=== PATIENT | male | born 1975 | race Caucasian/White ===

== ENCOUNTER 2016-03-30 21:06 | Inpatient (IN) | payer MEDICAID, OTHER ==
[~2016-03-30] VITALS: Ht 185.4 cm; Wt 105.0 kg
[~2016-03-30 21:06] MED LIST: BENZ2TAB7; BUSP15TA3; DIAZ5TAB3; DILT180C83; EPIN0.3P17; GABA-502; HYDR25TA4; KLO2T; OXYC-466; PRAZ5CAP3; RISP2TAB3
[2016-03-31] MEDS ORDERED: Magnesium Hydroxide 10 mL Oral Concentration PO PRN (00:55)
[2016-03-31] MEDS ORDERED: Benzocaine-Menthol Lozenge 2/Pkg PO PRN (00:55)
[2016-03-31] MEDS: risperiDONE 2 mg Tablet PO SCH ×2 (00:55→20:17)
[2016-03-31] MEDS: BusPIRone 15 mg Dividose Tablet PO SCH ×3 (00:55→20:15)
--- NOTE | 2016-03-31 04:09 | NUR ---
admit note nursing 11-7 this is a 41 year old male who presented and was medically cleared, evaluated and accepted as a voluntary patient from [facility]. he has been certified for 5 days by eliud izaguirre. has a hx of multiple hospitalizations, the last being here 08/20/2015 and is currently enrolled in [facility] and taking prescribed medication. he complains of increasing voices to hang himself related to conflict between his parents with whom he lives. this has been getting increasingly worse and led him to call 911 seeking hospitalization for safety. he arrived at 0010 by ambulance. presented as cooperative and seeking help. physical assessment- denies any acute medical/physical injury/need and none is apparent. is a/o x3, vs- wnl, has medication allergies, ht- 73", wt- 230 lbs. hx of head injury, crush injury, bilateral knee surgery, hypertension, kidney stones, chronic pain. recent poor eating, sleeping, hygiene. increased anxiety, panic attacks, derogatory voices. received 1 mg of ativan x3 and 5 mg of valium at [facility] prior to transport. completed the admission process, searched, agrees to no self harm, briefly oriented to the unit/program, given bed 226 and has appeared to sleep after 0145. assessed q 15 minutes. juan
--- NOTE | 2016-03-31 05:54 | NUR ---
Pt arrived to unit at 0010. Signed all paperwork. Pleasant and somewhat anxious. Asleep at 145. Pt observed every 15 minutes as ordered.
[2016-03-31] MEDS: Diltiazem CD 180 mg ER24 Capsule PO SCH (08:10)
[2016-03-31 09:00] VITALS: BP 143/94; PULSE 77; RESP 16
[2016-03-31] MEDS: oxyCODONE-Acetamin 10-325 mg Tablet PO PRN ×3 (09:38→20:18)
--- NOTE | 2016-03-31 11:50 | PCM.HPPSYC ---
Mental Health [facility] Date of Service Mar 31, 2016 Admission Date/Time Mar 31, 2016 at 00:09 Admission Status: Voluntary Source of Information: Patient Interview, Chart Review, Clinical Materials Accompanying, Observation Chief Complaint Suicidal ideation and command auditory hallucinations History of Present Illness Quintin is a 40-year-old, white male, known to the [facility] with a past admission in 2016 for similar complaints, Command auditory hallucinations of a derogatory nature leading to multiple symptoms of depression (poor sleep interest and appetite concentration and now suicidal ideation with a plan to hang himself. Since leaving the mental health unit in August 2015 he has remained on his current medications. He reports being medication compliant. Complaining of high degree of stress that seems to be a result of from his view of his parents fighting. This is causing him to be highly agitated and is not able to calm down despite being on BuSpar Klonopin gabapentin Valium Percocet and Risperdal. He is followed by [facility] and carries a diagnosis of schizoaffectivedisorder. He has a long history of responding to internal voices. They tend to be derogatory in nature and tell him he is "worthless." He had been doing well for months until a recent gradual deterioration in his mood. The only factor I could identify for the increased symptoms his complaints of interpersonal relationship conflicts within the house between his mother and stepfather. He was admitted here on avoluntary basis from [facility] after having increasing suicidal ideation and increasing auditory hallucinations. He stated that depression had been slowly increasing for the past several months, and it got to the point where he was afraid he could not contain self-harm impulses. He started to have thoughts about either hanging himself and sought help. Presenting Symptoms: Mood (Months), Depression (Months), with Psychotic Features (Weeks), Psychosis (Weeks), Anxiety (Months), Panic (Months) Vegetative Functioning: Sleep (Decreased), Appetite (Decreased), Energy ( Decreased), Libido (Decreased) Allergies Coded Allergies: Honey Bee (Verified Allergy, Severe, Anaphylaxis, 10/24/07) Wasp (Verified Allergy, Severe, Anaphylaxis, 10/24/07) ketorolac (Verified Allergy, Severe, 07/05/11) hydromorphone (Verified Allergy, Unknown, 08/21/15) Penicillins (Verified Adverse Reaction, Severe, 07/05/11) morphine (Verified Adverse Reaction, Severe, 07/05/11) Home Medications Home Medications Benztropine Mesylate (Benztropine Mesylate) 2 Mg Tablet DAILY Buspirone (Buspirone) 15 Mg Tablet QID Clonazepam (Clonazepam) 2 Mg Tablet DAILY Diazepam (Diazepam) 5 Mg Tablet QID Diltiazem ER (Diltiazem ER) 180 Mg Cap.er.24h DAILY Gabapentin (Gabapentin) 300 Mg Capsule QID Hydrochlorothiazide (Hydrochlorothiazide) 25 Mg Tablet DAILY Prazosin (Prazosin) 5 Mg Capsule DAILY Risperidone (Risperidone) 2 Mg Tablet DAILY oxyCODONE-Acetaminophen 10-325 mg (oxyCODONE-Acetaminophen 10-325 mg) 1 Each Tablet TID Scheduled PRN Epinephrine (Epinephrine) 0.3 Mg/0.3 Ml Auto.injct PRN For Anaphyllaxis Psychiatric Treatment History diagnosed with schizoaffective disorder at age 23. He has been hospitalized multiple times, and the last was 2015, and prior to that 2012 at [facility]. Past Suicide Attempts Yes Relevant History The patient does have a distant history of OD'ing on pills and slitting wrists "years and years ago." Hx non-suicidal Self-Injury Relevant History Relevant History Details: Hx Violence Towards Other No Past Medical History Past Medical/Surgical History Head Injury, HTN Current and Past Current/Past: hypertension, head injury, hx of kidney stones. Currently ?: No Hx Hospitalization: Yes Hx Surgeries: Yes (bilateral knee surgery) Hx Anesthesia Reactions: No Past Social History Family: Single Review of Systems Constitutional: No: Chills, Fever, Malaise, Other, Sweats, Weakness Eyes: Denies: Blurred Vision, Conjunctive Inflammation, Double Vision, Eyelid Inflammation, Other, Pain, Pigmentosa, Redness, Retinitis, Vision Changes Cardiovascular: Denies: Chest Pain, Edema, Lt Headedness, Orthopnea, Other, Palpitations, Paroxysmal Noc. Dyspnea Respiratory: Denies: Cough, Hemoptysis, Other, Pleuritic Chest Pain, SOB with Exertion, Shortness of Breath, Sputum, Wheezing Gastrointestinal: Denies: Abdominal Pain, Change in Appetite, Constipation, Diarrhea, Heartburn, Hematochezia, Melena, Nausea, Other, Use of Laxatives, Vomiting Genitourinary: Denies: Anuria, Change in Frequency, Dysuria, Hematuria, Incontinence, Nocturia, Other, Retention Neurological: Reports: Change in Speech, Confusion, Dizziness, Dyskinesia, Hyper Reflexia, Incoordination, Numbness, Other, Seizures, Somnolence, Tremors, Weakness Mental Status Exam Appearance: Neat/well groomed Attitude: Pleasant, Cooperative Behavior: No unusual behavior Affect: Well Modulated/Appropriate Mood: Dysthymic, Anxious Thought Process/Associations: Logical/Sequential, Goal Directed Speech Production: Normal Speech Rate: Normal Speech Articulation: Normal Thought Content: Appropriate Danger to Self/Suicidal Ideati: Active, Plan, Intent Danger to Others: None Hallucinations: Auditory (Endorses), Other (he describes command auditory hallucinations of a derogatory nature) Consciousness: Alert Orientation: Person, Place, Date, Situation Memory: Grossly Intact Estimate Intellectual Function: Average Basis for IQ estimate: Awareness current events Attention/Concentration & Cogn: Grossly Intact Insight: Limited Judgement: Good Mental Health Plan Sarita Sarita I: Schizoaffective disorder, bipolar type, by history. Sarita II: No diagnosis. Sarita III: 1. Hypertension. 2. Renal stones. 3. History of traumatic brain injury. 4. History of musculoskeletal pain. Sarita IV: Moderate. Sarita V: Functioning is 40. Medications BuSpar 30 twice a day Klonopin 2 mg at bedtime Gabapentin 300 4 times a day Valium 5 mg 4 times a day Risperdal 4 at bedtime Prazosin 5 at bedtime Percocet double strength every 4-6 hours when necessary Diltiazem 180 mg daily Treatments Patient will be provided with a high degree of safety through the structure and active adult engagement. We will focus on developing improved coping skills and identifying stressors that may have led to current episode. We will attempt to: Integrate into therapeutic groups, milieu and individual therapy. Maintain in a closely monitored and structured unit Provide low-stimulation environment Obtain collateral data to assist in treatment planning Assess degree of lability of affect and impulse control Complete safety plan Decrease frequency of relapse and need for re-hospitalization Denies thoughts of harm to self Establish a consistent sleep pattern Medication effective in stabilization of mood and/or thought process Reduce the risk of imminent harm to self by providing a safe environment Tolerates medication without side effects Patient will be on the following psychiatric medications: BuSpar 30 twice a day Klonopin 2 mg at bedtime Gabapentin 300 4 times a day Valium 5 mg 4 times a day Risperdal 4 at bedtime Prazosin 5 at bedtime Address patient's legal status Voluntary Jordan Thompson MD Mar 31, 2016 11:50
--- NOTE | 2016-03-31 13:17 | NUR ---
Nursing Dayshift: S: "These two fingers are numb and there's pain in this elbow that goes to my shoulder blades the to the middle of my back." O: Patient pointing to his left hand and elbow when describing numbness and pain. Received Percocet DS at 0938 for pain rated at an 8 with patient relating effectiveness down to a 3 which has sustained him into the early afternoon. Easily approachable and social during interaction. States he has been on Zoloft in the past for depression but had been taken off of it due to resolving of symptoms. States he will "burst out in tears occasionally" because of the current depression rated at a 7/10. Anxiety a 4/10. Denies harmful thoughts and VH. AH "softer today." Has ambulated the hughes earlier in the shift. Has been drinking fluids off of his breakfast tray. No intake off of his lunch tray "when I see the food cart a voice tells me 'don't eat, don't eat.'". Declines to eat solid food. Has been given an Ensure which he did drink though afterward c/o upset stomach from the Ensure and promptly threw it up in his bathroom. A: Pleasant on approach. Blunted affect. Appetite dysfunction. P: CPOC. Monitor mood and behavior. Encourage PO intake. Meds per orders. Addendum: 03/31/16 at 0579 by PRETTY EARLY RN Patient continues to c/o nausea and received Maalox liquid. Received another Percocet DS at 1438 with effective results per patient to a 3/10. Will continue to monitor.
[2016-03-31] MEDS: Alum-Mag Hydrox-Simeth 30 mL Suspension PO PRN ×2 (14:28→16:41)
--- NOTE | 2016-03-31 18:33 | NUR ---
Observations 9006-9200 Pt was asleep upon start of shift. He appears to be in physical pain, and also stated that he hasn't slept in days. Pt shared that he doesn't eat....sharing that he has not eaten anything for the last four days. When questioned about this, pt stated that "I hear a voice in my head saying don't eat, don't eat, don't eat..." Pt shared he doesn't have an appetite, but also doesn't want to gain weight. He also shared that he has not taken a shower in the last month, worried that he might fall in the shower and lose use of his legs, which he states have metal pins in them. Pt had a previous injury in which doctors told him he would lose use of his legs, so he fears this. Pt ate an ensure this afternoon, but threw it up, and continued to be sick throughout the day. Pt walked halls in the evening, and did not eat anything else. He was observed every 15 minutes of shift as directed.
[2016-04-01] MEDS: oxyCODONE-Acetamin 10-325 mg Tablet PO PRN ×4 (02:44→21:24)
--- NOTE | 2016-04-01 05:58 | NUR ---
Nursing Noc 7p-7a Pt spent the evening walking the hallway. He presents as depressed and flat. He did express concern that a male peer was questioning him about his pain medication making Quintin concerned that this male pt was wanting to take Quintin's pain medicine. Pt asked to receive his medication in a private location away from his peers. This request was accommodated. He c/o of pain in his neck across his shoulder blades rated 6/10. He received Percocet 1 tab po prn @ 2018 & 0244. Both times pain was rated 6/10 and eventually decreased to 3/10. He received ambien 5mg po prn for sleep @ 2018 with a repeat given @ 0244. Medication had moderate effect. Broken sleep of 6 hours.
[2016-04-01] MEDS: Diltiazem CD 180 mg ER24 Capsule PO SCH (07:24)
[2016-04-01] MEDS: BusPIRone 15 mg Dividose Tablet PO SCH ×2 (07:25→21:13)
[2016-04-01 09:00] VITALS: BP 129/91; PULSE 99; RESP 16
[2016-04-01] MEDS: Alum-Mag Hydrox-Simeth 30 mL Suspension PO PRN (11:45)
[2016-04-01] MEDS: Ondansetron 8 mg ODT Tablet PO PRN ×2 (12:41→19:03)
--- NOTE | 2016-04-01 14:42 | PCM.PNPSY ---
Subjective Date of Service Apr 01, 2016 Subjective The patient was found to be vomiting and reported that he has had this over the last 2-3 days. He denies fever or chills, diarrhea, melena, hematemesis. He reports that he is still having "a little voices" telling him to harm himself. He reports that he uses self talk with closing his eyes and saying "it is not real"repeatedly. He reports that he is still having difficulty with anxiety and insomnia. The patient has previously been treated with ondansetron with good results. Sleep: 6.5+ hours, trauma-related nightmares. Appetite: Reduced with nausea Suicidal and homicidal ideation: Denies Auditory hallucinations: "03/22", as above Visual hallucinations: Denies Other Psychotic Symptoms: Any Anxiety: 06/19 Depression: 06/19 Current Medications Current Medications Al Hydrox/Mg Hydrox/Simethicone 30 ml Q6H PRN PO Last administered on 11:45; Admin Dose 30 ML; Start 03/31/16 at 00:55 Buspirone HCl 30 mg BID PO Last administered on 04/01/16 07:25; Admin Dose 30 MG; Start 03/31/16 at 00:55 Clonazepam 2 mg HS PO Last administered on 03/31/16 20:16; Admin Dose 2 MG; Start 03/31/16 at 21:00 Diazepam 5 mg ONCE ONCE PO Last administered on 04/01/16 13:05; Admin Dose 5 MG; Start 04/01/16 at 12:15; Stop 04/01/16 at 12:28; Status DC Diazepam 5 mg QID PO Last administered on 04/01/16 11:45; Admin Dose 5 MG; Start 03/31/16 at 00:55 Diltiazem HCl 180 mg DAILY PO Last administered on 04/01/16 07:24; Admin Dose 180 MG; Start 03/31/16 at 08:30 Gabapentin 300 mg QID PO Last administered on 04/01/16 13:04; Admin Dose 300 MG ; Start 03/31/16 at 00:55 Hydrochlorothiazide 25 mg DAILY PO Last administered on 04/01/16 07:24; Admin Dose 25 MG; Start 03/31/16 at 08:30 Nicotine 1 patch DAILY TOPICAL Last administered on 04/01/16 07:24; Admin Dose 1 PATCH; Start 03/31/16 at 11:51 Ondansetron HCl 8 mg Q6H PRN PO Last administered on 04/01/16 12:41; Admin Dose 8 MG; Start 04/01/16 at 12:15 Oxycodone/ Acetaminophen 1 tab Q4H PRN PO Last administered on 04/01/16 13:05 ; Admin Dose 1 TAB; Start 03/31/16 at 00:55 Prazosin HCl 5 mg HS PO Last administered on 03/31/16 20:16; Admin Dose 5 MG; Start 03/31/16 at 00:55 Risperidone 4 mg HS PO Last administered on 03/31/16 20:17; Admin Dose 4 MG; Start 03/31/16 at 00:55 Zolpidem Tartrate Start with 5 mg and june rep... HS PRN PO Last administered on 04/01/16 02:44; Admin Dose 5 MG; Start 03/31/16 at 00:55 Mental Status Exam Vital Signs Vital Signs Date Time Temp Pulse Resp B/P Pulse Ox O2 Delivery O2 Flow Rate FiO2 04/01/16 09:00 36.4 99 16 129/91 Appearance: Neat/well groomed Attitude: Pleasant, Cooperative Behavior: No unusual behavior Affect: Well Modulated/Appropriate Mood: Dysthymic, Anxious Thought Process/Associations: Logical/Sequential, Goal Directed Speech Production: Normal Speech Rate: Normal Speech Articulation: Normal Thought Content: Appropriate Danger to Self/Suicidal Ideati: None Danger to Others: None Hallucinations: Auditory (Endorses with command hallucinations as above.), Visual (Denies) Consciousness: Alert Orientation: Person, Place, Date, Situation Memory: Grossly Intact Estimate Intellectual Function: Average Basis for IQ estimate: Awareness current events Attention/Concentration & Cogn: Grossly Intact Insight: Good Judgement: Good Mental Health Plan Quintin is a 40-year-old, white male, known to the [facility] with a past admission in 2016 for similar complaints of command auditory hallucinations of a derogatory nature leading to multiple symptoms of depression (poor sleep, interest, appetite, and concentration) and now with command auditory hallucinations to hang himself. Since leaving the mental health unit in August 2015 he has remained on his current medications. He reports being medication compliant. The patient appears to have residual trauma related symptoms. He also currently has nausea but does not appear to be anxiety driven. He has responded well to ondansetron. He was agreeable to increasing prazosin with a dose during the day. We discussed using a clear liquid diet and antinausea medication for symptomatic relief. Should the patient's constitutional symptoms persist he will be referred to medical service for consultation. Stamford Stamford I: Schizoaffective disorder, bipolar type, by history. Stamford II: No diagnosis. Stamford III: 1. Hypertension. 2. Renal stones. 3. History of traumatic brain injury. 4. History of musculoskeletal pain. Stamford IV: Moderate. Stamford V: Functioning is 40. Medications BuSpar 30 twice a day Valium 5 mg 4 times a day Klonopin 2 mg at bedtime Gabapentin 300 4 times a day Risperdal 4 at bedtime Prazosin 5 at bedtime Percocet double strength every 4-6 hours when necessary Diltiazem 180 mg daily Hydrochlorothiazide 25 mg daily Zolpidem milligrams to 10 mg nightly when necessary insomnia Treatments 1. The patient is admitted to the inpatient unit and will be provided a safe and secure environment. 2. Although the patient is reporting command auditory hallucinations, he denies actual suicidal ideation without any intent of acting on hallucinations. The patient is denying current active suicidality and is not in need of a one- to-one at this time. He is agreeing to notify us should he have any acute suicidal or homicidal thoughts. 3. The patient is encouraged to participate with group and milieu activities. 4. The patient will be seen by the treatment team on a daily basis to assess symptoms, side effects and response to treatment. 5. The patient will be placed on a clear liquid diet and given ondansetron for nausea. 6. Increase prazosin to 2 mg daily. 7. Once nausea is controlled, switching from diazepam and clonazepam to just clonazepam could be initiated. 8. Anticipated length of stay is 7-10 days. Brent Lafleur MD Apr 01, 2016 14:42
--- NOTE | 2016-04-01 17:06 | NUR ---
Nursing Dayshift: S: "I'm feeling really bad." O: Patient has had 2 episodes of emesis. Stated he had eaten a banana for breakfast and it did not settle well. More emesis in the afternoon after Maalox was given. MD then ordered Zofran 8 mg which was administered with effective relief and patient being able to keep down PO medication with water. Pleasant on approach. Med compliant. Denies harmful thoughts and VH. Does acknowledge AH "telling me to hurt my self but it's not to loud." A: N/V. Improved with Zofran. P: CPOC. Monitor mood and behavior. Meds per orders. Clear liquid diet.
--- NOTE | 2016-04-01 17:58 | NUR ---
Ski Patrol/Counselor: S/O: Patient slept 6.5 hours last night as per staff. He denies S/I and H/I. He reports hearing voices telling him to harm himself. He denies visual hallucinations. Depression is 5/10 and anxiety is 5/10. A: Patient is cooperative, pleasant, anxious, dysthymic, good insight, good judgment. P: Follow care plan, coordinate out-patient providers.
--- NOTE | 2016-04-01 18:40 | NUR ---
Observations [id number] Pt was asleep upon start of shift. He was observed walking the halls and watching TV much of the day. He continues to appear somber and lacking emotion, stating he is depressed. Pt was placed on a clear liquid diet as he continues to throw up food and medication. He has still not taken a shower since he has been here. He is friendly with peers and staff but doesn't socialize much. Pt attended one group and was observed every 15 minutes of shift as directed.
[2016-04-01] MEDS: risperiDONE 2 mg Tablet PO SCH (21:15)
--- NOTE | 2016-04-02 01:18 | NUR ---
Observations 1900 to 0700 Pt was out in the DR for most of the night. Pt walked the halls for awhile too. pt didn't say much. Pt finished the movie that was playing and went to bed soon after. Pt first appeared asleep at 23:15 and was observed every 15 minutes through the night as directed.
[2016-04-02] MEDS: oxyCODONE-Acetamin 10-325 mg Tablet PO PRN ×5 (02:16→20:34)
--- NOTE | 2016-04-02 06:35 | NUR ---
Nursing 7p-7a Pt pleasant, social and appropriate on the unit. He participated in evening group/snack/movie. He reported that Zofran was helpful in relieving his NV. His neck/shoulder pain continues with pain rated 7/10 which is mildly relieved by his prn Percocet. He received Ambien 5mg po prn with a repeat with apparent effect. He has remained asleep since 2345 awakening briefly x 1 d/t pain but was able to return quickly back to sleep. Total sleep over 7 hours.
[2016-04-02] MEDS: Diltiazem CD 180 mg ER24 Capsule PO SCH (08:17)
[2016-04-02] MEDS: BusPIRone 15 mg Dividose Tablet PO SCH ×2 (08:17→20:31)
[2016-04-02 10:23] VITALS: BP 125/85; PULSE 104; RESP 16
--- NOTE | 2016-04-02 12:26 | NUR ---
Nursing: PRN medication: Percocet:Effect of Percocet administered before this shift: At 0820, Pain level lowered to 2/10 from 7/10. Also, requested and received Percocet at 1115 for back pain at 5/10 level. He stated at 1230 that his pain level had gone down to 2/10. Nicotine losenge at 1115.
--- NOTE | 2016-04-02 13:01 | NUR ---
Nursing. Day shift: S/O:Quintin has been out in the open unit so far this shift: He sits with a flat facial expression watching TV or reading the newspaper. Does not seem to react with emotion to anything he sees on TV or in the environment. Not observed initiating interactions with peers. At noon, rated his anxiety as "reasonable" depression at 4/10, and denies suicidal ideation. We discussed the med change from Diazepam to Clonazepam. He expressed concern as to whether he will be able to sleep. States the "voices disappeared today". Denies any nausea or vomiting today. Has not requested or received any zofran today. A: Flat. Pain control requires prn oxycocone every 4 hours. P: Continue to assess for effectiveness of current med regimen for pain, sleep and anxiety control. Addendum: 04/02/16 at 1328 by GENA LAMBERT RN Amended: Links added.
--- NOTE | 2016-04-02 16:11 | NUR ---
Hims Manager/Counselor: S: I feel calmer today." O: Patient slept 6+ hours last night as per staff. Patient stated that he did not sleep well last night. He denies S/I and H/I. He denies auditory and visual hallucinations. Depression is 4/10 and anxiety is "better" at 3/10. A: Patient is cooperative, pleasant, anxious, dysthymic, good insight, good judgment. P: Follow care plan, coordinate out-patient providers.
--- NOTE | 2016-04-02 19:01 | NUR ---
Obs Dayshift Pt is engaged, participating, polite, appropriate, calm. Pt is engaging well w/ peers and staff. Attending all groups. Pt does some pacing in the halls, states due to back pain. Pt appears sad, forward thinking and hopeful for the future. Good ADL's, Good meals
[2016-04-02] MEDS: risperiDONE 2 mg Tablet PO SCH (20:33)
--- NOTE | 2016-04-02 22:35 | NUR ---
Nurses Note Evening Patient has been out in the community,attended groups and watched movies with peers. He stated his anxiety is better,the voices were gone but his sleep remains disturbed with difficulty falling asleep and then frequent awakenings.. He has required PRN Percocet for back pain with fair response. Will continue to encourage verbalization of thoughts and feelings,continued medication compliance. Addendum: 04/02/16 at 2243 by ARMINDA STEPHENS RN Amended: Links added.
--- NOTE | 2016-04-02 23:47 | NUR ---
PRN Motrin 600mg po prn given for neck/shoulder pain rated 5/10. PRN Ambien 5mg po given for continued difficulty sleeping. Will assess medication efficacy through the night. Addendum: 04/03/16 at 0225 by LAUREN CORREIA RN Pt had continued to experience neck/shoulder pain and received prn Percocet 1 tab with good results. Pt remains awake quietly lying in bed. He reports current pain in neck/shoulder area as 3/10 which he states is a manageable pain level for him. He was offered and and accepted Ativan 1mg po prn @ 0220 for continued insomnia. Will continue to assess pain and sleep throughout shift. Addendum: 04/03/16 at 0507 by LAUREN CORREIA RN Pain relief met with prn medication for remainder of night with no further complaint of pain. Poor sleep noted through the night. He slept a little over an hour from [id number] and then from 0430 to current time for a total of 2 hours sleep tonight. Day shift to assess midmorning sleep and naps taken during the daytime. Addendum: 04/03/16 at 0523 by LAUREN CORREIA RN Pt awake walking down the hallway at 0520. He stated he felt "ok" r/t pain. Addendum: 04/03/16 at 0651 by LAUREN CORREIA RN Pt requested and received Percocet 1 tab po prn for neck/shoulder pain rated 5/10. He self reports an hour of sleep last night. He states "I think I should get a nap in today". Pt pleasant and cooperative.
--- NOTE | 2016-04-02 23:54 | PCM.PNPSY ---
Subjective Date of Service Apr 02, 2016 Subjective The patient reports nausea and vomiting improved. His anxiety is improved but he is feeling sedated. He reported that his pain earlier was 7/10 and now is 2/ 10. The patient reports last AH were last night. No side effect c/o.. Sleep: 6+ hours, up x 2 Appetite: "hungry" Suicidal and homicidal ideation: Denies Auditory hallucinations: Denies Visual hallucinations: Denies Other Psychotic Symptoms: NA Anxiety: 04/19 "better", yesterday 06/19 Depression: 05/20, yesterday 06/19 Current Medications Current Medications Clonazepam 1 mg TIDWM PO Last administered on 04/02/16 11:22; Admin Dose 1 MG; Start 04/02/16 at 12:00 Clonazepam 2 mg HS PO Last administered on 04/01/16 21:14; Admin Dose 2 MG; Start 03/31/16 at 21:00 Diazepam 5 mg ONCE ONCE PO Last administered on 04/01/16 13:05; Admin Dose 5 MG; Start 04/01/16 at 12:15; Stop 04/01/16 at 12:28; Status DC Gabapentin 100 mg STK-MED ONCE .ROUTE Last administered on 04/01/16 21:19; Admin Dose 100 MG; Start 04/01/16 at 21:08; Stop 04/01/16 at 21:11; Status DC Gabapentin 200 mg STK-MED ONCE .ROUTE Last administered on 04/01/16 21:20; Admin Dose 200 MG; Start 04/01/16 at 21:10; Stop 04/01/16 at 21:13; Status DC Gabapentin 300 mg QID PO Last administered on 04/02/16 11:42; Admin Dose 300 MG ; Start 04/02/16 at 11:30 Gabapentin 300 mg STK-MED ONCE .ROUTE Last administered on 04/01/16 16:47; Admin Dose 300 MG; Start 04/01/16 at 16:42; Stop 04/01/16 at 16:45; Status DC Gabapentin 300 mg STK-MED ONCE .ROUTE Last administered on 04/02/16 06:54; Admin Dose 300 MG; Start 04/02/16 at 06:46; Stop 04/02/16 at 06:49; Status DC Ondansetron HCl 8 mg Q6H PRN PO Last administered on 04/01/16 19:03; Admin Dose 8 MG; Start 04/01/16 at 12:15 Prazosin HCl 2 mg 1430 ONCE PO Last administered on 04/01/16 14:38; Admin Dose 2 MG; Start 04/01/16 at 14:30; Stop 04/01/16 at 14:31; Status DC Prazosin HCl 2 mg DAILY PO Last administered on 04/02/16 08:17; Admin Dose 2 MG ; Start 04/02/16 at 08:30 Mental Status Exam Vital Signs Vital Signs Date Time Temp Pulse Resp B/P Pulse Ox O2 Delivery O2 Flow Rate FiO2 04/02/16 10:23 36.3 104 16 125/85 Appearance: Neat/well groomed Attitude: Pleasant, Cooperative Behavior: No unusual behavior Affect: Well Modulated/Appropriate Mood: Dysthymic, Anxious Thought Process/Associations: Logical/Sequential, Goal Directed Speech Production: Normal Speech Rate: Normal Speech Articulation: Normal Thought Content: Appropriate Danger to Self/Suicidal Ideati: None Danger to Others: None Hallucinations: Auditory (Denies), Visual (Denies) Consciousness: Alert Orientation: Person, Place, Date, Situation Memory: Grossly Intact Estimate Intellectual Function: Average Basis for IQ estimate: Awareness current events Attention/Concentration & Cogn: Grossly Intact Insight: Good Judgement: Good Mental Health Plan Quintin is a 40-year-old, white male, known to the [facility] with a past admission in 2015 for similar complaints of command auditory hallucinations of a derogatory nature leading to multiple symptoms of depression (poor sleep, interest, appetite, and concentration) and now with command auditory hallucinations to hang himself. Since leaving the mental health unit in August 2015 he has remained on his current medications. He reports being medication compliant. The patient appears to have residual trauma related symptoms. The patients nausea has improved, and we will move to bland diet. Patient's auditory hallucinations appear improved. Patient would like to proceed with switching to clonazepam from diazepam. [place] I: Schizoaffective disorder, bipolar type, by history. [place] II: No diagnosis. [place] III: 1. Hypertension. 2. Renal stones. 3. History of traumatic brain injury. 4. History of musculoskeletal pain. [place] IV: Moderate. [place] V: Functioning is 40. Medications BuSpar 30 twice a day Valium 5 mg 4 times a day Klonopin 2 mg at bedtime Gabapentin 300 4 times a day Risperdal 4 at bedtime Prazosin 2mg daily and 5mg at bedtime Percocet double strength every 4-6 hours when necessary Diltiazem 180 mg daily Hydrochlorothiazide 25 mg daily Zolpidem milligrams to 10 mg nightly when necessary insomnia Treatments 1. The patient is admitted to the inpatient unit and will be provided a safe and secure environment. 2. Although the patient is reporting command auditory hallucinations, he denies actual suicidal ideation without any intent of acting on hallucinations. The patient is denying current active suicidality and is not in need of a one- to-one at this time. He is agreeing to notify us should he have any acute suicidal or homicidal thoughts. 3. The patient is encouraged to participate with group and milieu activities. 4. The patient will be seen by the treatment team on a daily basis to assess symptoms, side effects and response to treatment. 5. Advance to bland diet and regular if tolerated. 6. Continue prazosin 2 mg daily and 5mg nightly. 7. DC diazepam, switch to clonazepam 1mg tid with meals and 2mg at bedtime. 8. Anticipated length of stay is 3-5 days. Brent Lafleur MD Apr 02, 2016 13:14
[2016-04-03] MEDS: oxyCODONE-Acetamin 10-325 mg Tablet PO PRN ×5 (00:47→19:43)
--- NOTE | 2016-04-03 01:01 | NUR ---
Observations 1900 to 0700 Pt was out in the DR for most of the night. pt didn't say much. Pt finished the movie that was playing and went to bed soon after. Pt first appeared asleep at 22:15 and was observed every 15 minutes through the night as directed.
[2016-04-03] MEDS: LORazepam 1 mg Tablet PO PRN ×2 (02:20→22:04)
[2016-04-03] MEDS: BusPIRone 15 mg Dividose Tablet PO SCH ×2 (07:42→20:36)
[2016-04-03] MEDS: Diltiazem CD 180 mg ER24 Capsule PO SCH (07:43)
[2016-04-03 12:15] VITALS: BP 138/90; PULSE 92; RESP 16
--- NOTE | 2016-04-03 13:18 | NUR ---
Nursing Note [id number] Behavior, PRN Medications S/O: Pt reports he was not able to sleep last night. He says that he only slept for 1 hour. Pt has been walking in the halls to try & stay awake so that he will be able to sleep tonight. He reports the change from Valium to Klonopin has been helpful. He rates his anxiety at a "2" on a scale of 1-10/10 the worst. He states, "It's the best I've felt in a year....Now all we need to do is get my sleep under control." Pt has been able to eat all of the general diet today. Affect is flat. Conversation tracking clear & organized with normal rate & rhythm. A: Pt's anxiety, nausea & vomiting is improving. Sleep has been poor. P: Provide supportive environment. Monitor medications & effects.
--- NOTE | 2016-04-03 14:37 | PCM.PNPSY ---
Subjective Date of Service Apr 03, 2016 Subjective The patient reported that he couldn't sleep well last night despite multiple PRNs. Discussed that this is likely due to the switch from diazepam to clonazepam. Despite this, the patient reports that he did not have an increase in flashbacks or return of auditory hallucinations. He states that he believes that the prazosin is primarily responsible for the improvement in his symptoms. The patient has not responded to trazodone in the past. He has never had a trial of mirtazapine. Given his history of anxiety, this may be a good alternative to help reduce clonazepam. Patient agreeable to trial. The patient reports that nausea/vomiting has resolved with no diarrhea or other symptoms. No side effect c/o.. Sleep:2 hrs Appetite: "really hungry" Suicidal and homicidal ideation: Denies Auditory hallucinations: Denies Visual hallucinations: Denies Other Psychotic Symptoms: NA Anxiety: 03/22 "better", yesterday 04/19 Depression: 2-04/19, yesterday 05/20 Current Medications Current Medications Clonazepam 1 mg TIDWM PO Last administered on 04/03/16 12:51; Admin Dose 1 MG; Start 04/02/16 at 12:00 Gabapentin 100 mg STK-MED ONCE .ROUTE Last administered on 04/01/16 21:19; Admin Dose 100 MG; Start 04/01/16 at 21:08; Stop 04/01/16 at 21:11; Status DC Gabapentin 200 mg STK-MED ONCE .ROUTE Last administered on 04/01/16 21:20; Admin Dose 200 MG; Start 04/01/16 at 21:10; Stop 04/01/16 at 21:13; Status DC Gabapentin 300 mg QID PO Last administered on 04/03/16 06:48; Admin Dose 300 MG ; Start 04/02/16 at 11:30; Stop 04/03/16 at 12:41; Status DC Gabapentin 300 mg QID PO Last administered on 04/03/16 12:51; Admin Dose 300 MG ; Start 04/03/16 at 12:42 Gabapentin 300 mg STK-MED ONCE .ROUTE Last administered on 04/01/16 16:47; Admin Dose 300 MG; Start 04/01/16 at 16:42; Stop 04/01/16 at 16:45; Status DC Gabapentin 300 mg STK-MED ONCE .ROUTE Last administered on 04/02/16 06:54; Admin Dose 300 MG; Start 04/02/16 at 06:46; Stop 04/02/16 at 06:49; Status DC Prazosin HCl 2 mg DAILY PO Last administered on 04/03/16 07:43; Admin Dose 2 MG ; Start 04/02/16 at 08:30 Mental Status Exam Vital Signs Vital Signs Date Time Temp Pulse Resp B/P Pulse Ox O2 Delivery O2 Flow Rate FiO2 04/03/16 12:15 36.0 92 16 138/90 Appearance: Neat/well groomed Attitude: Pleasant, Cooperative Behavior: No unusual behavior Affect: Restricted Mood: Other ("tired") Thought Process/Associations: Logical/Sequential, Goal Directed Speech Production: Normal Speech Rate: Normal Speech Articulation: Normal Thought Content: Appropriate Danger to Self/Suicidal Ideati: None Danger to Others: None Hallucinations: Auditory (Denies), Visual (Denies) Consciousness: Alert Orientation: Person, Place, Date, Situation Memory: Grossly Intact Estimate Intellectual Function: Average Basis for IQ estimate: Awareness current events Attention/Concentration & Cogn: Grossly Intact Insight: Good Judgement: Good Mental Health Plan Quintin is a 40-year-old, white male, known to the [facility] with a past admission in 2016 for similar complaints of command auditory hallucinations of a derogatory nature leading to multiple symptoms of depression (poor sleep, interest, appetite, and concentration) and now with command auditory hallucinations to hang himself. Since leaving the mental health unit in August 2015 he has remained on his current medications. He reports being medication compliant. The patient appears to have residual trauma related symptoms. The patients nausea has improved, he is tolerating a regular diet. Patient's auditory hallucinations continue to improve as have his flashbacks. Insomnia likely secondary to switch from diazepam to clonazepam. Patient may benefit from antidepressant to help decrease anxiolytic and to help with insomnia. [place] I: Schizoaffective disorder, bipolar type, by history. [place] II: No diagnosis. [place] III: 1. Hypertension. 2. Renal stones. 3. History of traumatic brain injury. 4. History of musculoskeletal pain. [place] IV: Moderate. [place] V: Functioning is 40. Medications BuSpar 30 twice a day Klonopin 1 mg 3 times a day with meals and 2 mg at bedtime Gabapentin 300 4 times a day Risperdal 4 at bedtime Prazosin 2mg daily and 5mg at bedtime Percocet double strength every 4-6 hours when necessary Diltiazem 180 mg daily Hydrochlorothiazide 25 mg daily Zolpidem milligrams to 10 mg nightly when necessary insomnia Treatments 1. The patient is admitted to the inpatient unit and will be provided a safe and secure environment. 2. Although the patient is reporting command auditory hallucinations, he denies actual suicidal ideation without any intent of acting on hallucinations. The patient is denying current active suicidality and is not in need of a one- to-one at this time. He is agreeing to notify us should he have any acute suicidal or homicidal thoughts. 3. The patient is encouraged to participate with group and milieu activities. 4. The patient will be seen by the treatment team on a daily basis to assess symptoms, side effects and response to treatment. 5. Advance to bland diet and regular if tolerated. 6. Continue prazosin 2 mg daily and 5mg nightly. 7. Mirtazapine 15mg at 2200. 8. Anticipated length of stay is 3-5 days. Brent Lafleur MD Apr 03, 2016 14:37
[2016-04-03] MEDS: risperiDONE 2 mg Tablet PO SCH (20:35)
--- NOTE | 2016-04-03 20:40 | NUR ---
Nurses PRN Patient requested and received Ambien 5mg for sleep,will assess response. Addendum: 04/03/16 at 2210 by ARMINDA STEPHENS RN Nurses PRN Patient requested and rreceived Ativan 1mg,Vistaril 50mg,and scheduled Remeron 15mg for sleep,night manager to assess response.
[2016-04-03] MEDS: hydrOXYzine Pamoate 25 mg Capsule PO PRN (22:04)
[2016-04-04] MEDS: oxyCODONE-Acetamin 10-325 mg Tablet PO PRN ×3 (03:31→11:58)
[2016-04-04] MEDS: hydrOXYzine Pamoate 25 mg Capsule PO PRN (03:31)
--- NOTE | 2016-04-04 05:58 | NUR ---
nursing, nights, 11-7 s- can i have my percocet and another ambien ? no i don't think i'll get back to sleep without it. i hurt between my shoulders and it radiates down. ok i'll try that. thank you. o- has appeared to sleep after 2200. asked for and received a percocet and 50 mg of vistaril at 0330 with good effect. appeared to sleep after 0400 until 0600 and is now sitting quietly in the dinning room. assessed q 15 minutes. a- interrupted sleep, medication helpful, no apparent distress. p- monitor behavior/emotional state, quality, times and amount of sleep, use and effect of medication. juan
[2016-04-04] MEDS: BusPIRone 15 mg Dividose Tablet PO SCH (08:15)
[2016-04-04] MEDS: Diltiazem CD 180 mg ER24 Capsule PO SCH (08:15)
[2016-04-04 10:20] VITALS: BP 137/87; PULSE 96; RESP 16
--- NOTE | 2016-04-04 11:35 | PCM.DIMED ---
Discharge Instructions Date of Service Apr 04, 2016 Dates of Hospitalization Mar 31, 2016 at 00:09 Discharge Diagnosis Discharge Diagnosis Zenia I: Schizoaffective disorder, bipolar type, by history. Zenia II: No diagnosis. Zenia III: 1. Hypertension. 2. Renal stones. 3. History of traumatic brain injury. 4. History of musculoskeletal pain. Zenia IV: Moderate. Zenia V: Functioning is 50. Medication Instructions Discuss with your provider further increase in mirtazapine (Remeron) and potential reduction in buspirone (Buspar). If flashbacks return, discuss with your provider potentially increasing the daytime prazosin. Diet No restrictions Activity No restrictions Patient Instructions Should you have any thoughts of harming yourself or others, please call the crisis line, your provider, 911, or go to the nearest Emergency Department. Do not change or discontinue your medications without discussing with your provider. You have been given a prescription for 14 days supply of your medication Follow-up plan Primary Care Dr. Charlene Serrano MD at on 04/05/16 at 09:30am [facility] [address] [place] [address] [facility] on 04/08/16 at 10:00am [address] [address] Brent Lafleur MD Apr 04, 2016 10:39
[2016-04-04] MEDS ORDERED: PRAZ5CAP3 PO (11:54)
[2016-04-04] MEDS ORDERED: BUSP15TA3 PO (11:54)
[2016-04-04] MEDS ORDERED: PRAZ2CAP PO (11:54)
[2016-04-04] MEDS ORDERED: ZLP5T PO (11:54)
[2016-04-04] MEDS ORDERED: MIRT15TA6 PO (11:54)
[2016-04-04] MEDS ORDERED: HYDR25TA4 PO (11:54)
[2016-04-04] MEDS ORDERED: RISP2TAB3 PO (11:54)
[2016-04-04] MEDS ORDERED: KLO2T PO (11:54)
[2016-04-04] MEDS ORDERED: HYDR-3797 PO (11:54)
[2016-04-04] MEDS ORDERED: DILT180C83 PO (11:54)
[2016-04-04] MEDS ORDERED: GABA-502 PO (11:54)
[2016-04-04] MEDS ORDERED: KLO1T PO (11:54)
--- NOTE | 2016-04-04 14:19 | PCM.DC.MED ---
Discharge Summary Date of Service Apr 04, 2016 Dates of Hospitalization Date of Hospital Admission Mar 31, 2016 at 00:09 Date of Discharge: Apr 04, 2016 Providers: Admitting Physician: Jordan Thompson MD Primary Care Physician: Charlene Serrano MD Attending Physician: Jordan Thompson MD Diagnosis at Time of Discharge Diagnosis at Time of Discharge Lom[place] I: Schizoaffective disorder, bipolar type, by history. [place]om[place] II: No diagnosis. [place] III: 1. Hypertension. 2. Renal stones. 3. History of traumatic brain injury. 4. History of musculoskeletal pain. Lom[place] IV: Moderate. Lometa V: Functioning is 50. Brief History Per Dr. Jordan Thompson's H&P on 03/31/16: Admission Status: Voluntary Source of Information: Patient Interview, Chart Review, Clinical Materials Accompanying, Observation Chief Complaint Suicidal ideation and command auditory hallucinations History of Present Illness Quintin is a 40-year-old, white male, known to the [facility] with a past admission in 2016 for similar complaints, Command auditory hallucinations of a derogatory nature leading to multiple symptoms of depression (poor sleep interest and appetite concentration and now suicidal ideation with a plan to hang himself. Since leaving the mental health unit in August 2015 he has remained on his current medications. He reports being medication compliant. Complaining of high degree of stress that seems to be a result of from his view of his parents fighting. This is causing him to be highly agitated and is not able to calm down despite being on BuSpar Klonopin gabapentin Valium Percocet and Risperdal. He is followed by [facility] and carries a diagnosis of schizoaffective disorder. He has a long history of responding to internal voices. They tend to be derogatory in nature and tell him he is "worthless." He had been doing well for months until a recent gradual deterioration in his mood. The only factor I could identify for the increased symptoms his complaints of interpersonal relationship conflicts within the house between his mother and stepfather. He was admitted here on a voluntary basis from [facility] after having increasing suicidal ideation and increasing auditory hallucinations. He stated that depression had been slowly increasing for the past several months, and it got to the point where he was afraid he could not contain self-harm impulses. He started to have thoughts about either hanging himself and sought help. Presenting Symptoms: Mood (Months), Depression (Months), with Psychotic Features (Weeks), Psychosis (Weeks), Anxiety (Months), Panic (Months) Vegetative Functioning: Sleep (Decreased), Appetite (Decreased), Energy ( Decreased), Libido (Decreased) Hospital Course The patient was admitted to the unit and restarted on his outpatient medications. Buspirone was consolidated to 30mg twice daily. Due to ongoing flashbacks and anxiety, prazosin 2mg was added in the day with good reduction in flashbacks, and nightmares. The patient had previously not tolerated being treated with diazepam monotherapy but had never tried clonazepam monotherapy. Diazepam was discontinued and clonazepam 1mg three times a day was ordered and significantly improved anxiety. Patient was having difficulty with insomnia, likely due to the change in diazepam. Mirtazapine was added at bedtime which significancy improved sleep. The long-term plan was to titrate mirtazapine to address anxiety, then reduce and discontinue buspirone. At the time of discharge, the patient was reporting his mood was "really relaxed , I'm happy." Sleep was reported as "well," 7 hours per staff and appetite was reported as "real good." His anxiety was reported as 1/10 and depression as 1/ 10. He denied flashbacks x 2+ days. He denied auditory or visual hallucinations and any thought, intent or plan of hurting himself or others. He denied medication side effects. Exam Vital Signs (Last) Date Time Temp Pulse Resp B/P Pulse Ox O2 Delivery O2 Flow Rate FiO2 04/04/16 10:20 36.6 96 16 137/87 Exam Discharge Mental Status Exam Appearance: Neat/well groomed Attitude: Pleasant, Cooperative Behavior: No unusual behavior Affect: Restricted Mood: "I'm happy" Thought Process/Associations: Logical/Sequential, Goal Directed Speech Production: Normal Speech Rate: Normal Speech Articulation: Normal Thought Content: Appropriate Danger to Self/Suicidal Ideation: None Danger to Others: None Hallucinations: Auditory (Denies), Visual (Denies) Consciousness: Alert Orientation: Person, Place, Date, Situation Memory: Grossly Intact Estimate Intellectual Function: Average Basis for IQ estimate: Awareness current events Attention/Concentration & Cognition: Grossly Intact Insight: Good Judgement: Good AIMS: negative. Discharge Medications Discharge Medications Benztropine Mesylate (Benztropine Mesylate) 2 Mg Tablet DAILY (Reported) Buspirone (Buspirone) 15 Mg Tablet 30 MG PO BID Prescribed by: DELTA LAFLEUR MD Clonazepam (Clonazepam) 2 Mg Tablet 1 TABLET PO HS Prescribed by: DELTA LAFLEUR MD Clonazepam (Clonazepam) 1 Mg Tablet 1 MG PO TIDWM Prescribed by: DELTA LAFLEUR MD Diltiazem ER (Diltiazem ER) 180 Mg Cap.er.24h 1 CAPSULE PO DAILY Prescribed by: DELTA LAFLEUR MD Gabapentin (Gabapentin) 300 Mg Capsule 1 CAPSULE PO QID Prescribed by: DELTA LAFLEUR MD Hydrochlorothiazide (Hydrochlorothiazide) 25 Mg Tablet 1 TABLET PO DAILY Prescribed by: DELTA LAFLEUR MD Mirtazapine (Mirtazapine) 15 Mg Tablet 15 MG PO 22 Prescribed by: DELTA LAFLEUR MD Prazosin (Prazosin) 5 Mg Capsule 1 CAPSULE PO DAILY Prescribed by: DELTA LAFLEUR MD Prazosin (Minipress) 2 Mg Capsule 2 MG PO DAILY Prescribed by: DELTA LAFLEUR MD Risperidone (Risperidone) 2 Mg Tablet 2 TABLET PO HS Prescribed by: DELTA LAFLEUR MD oxyCODONE-Acetaminophen 10-325 mg (oxyCODONE-Acetaminophen 10-325 mg) 1 Each Tablet TID (Reported) As needed Epinephrine (Epinephrine) 0.3 Mg/0.3 Ml Auto.injct PRN For Anaphyllaxis ( Reported) Hydroxyzine Pamoate (HydrOXYzine Pamoate) 25 Mg Capsule 50 MG PO Q4H PRN PRN anxiety/agitation/insomnia Prescribed by: DELTA LAFLEUR MD Zolpidem (Ambien) 5 Mg Tablet 5-10 MG PO HS PRN PRN Insomnia Prescribed by: DELTA LAFLEUR MD Additional med instructions Discuss with your provider further increase in mirtazapine (Remeron) and potential reduction in buspirone (Buspar). If flashbacks return, discuss with your provider potentially increasing the daytime prazosin. Followup Plan Disposition: The patient is requesting discharge as his primary objectives of quality sleep, decreased voices, and decreased anxiety and flashbacks had been reached. No indication for further hospitalization at this time, patient was discharged per his request with prescriptions for 14 days of medication. The patient verbally consented to take the prescribed medications. The patient verbally expressed understanding of the risks, benefits, alternative treatment options, and risks of not taking the prescribed medication. The patient verbally expressed understanding of the medication instructions, that he will adhere to the prescribed medication, and that he will go to all aftercare scheduled appointments. Follow-up plan Primary Care Dr. Charlene Serrano MD at on 04/05/16 at 09:30am [facility] [address] [place] [address] [facility] on 04/08/16 at 10:00am [address] [address] Discharge Diet: No restrictions Discharge Activity: No restrictions Patient Instructions Should you have any thoughts of harming yourself or others, please call the crisis line, your provider, 1, or go to the nearest Emergency Department. Do not change or discontinue your medications without discussing with your provider. You have been given a prescription for 14 days supply of your medication Delta Lafleur MD Apr 04, 2016 14:19
--- NOTE | 2016-04-04 14:30 | NUR ---
Nursing Note Discharge Pt discharged at 1345 by [employer] Transportation. Pt pleasant & cooperative. He rated his anxiety at a "1," depression at a "1" on a scale of 1-10/10 the worst. Pt denies suicidal/homicidal ideation or hallucinations. Pt filled out all paperwork. All belongings taken with pt. Pt expressed understanding of appointment times. Pt has list of appointment times & current medications. Scripts faxed to [facility] in [place].
--- NOTE | 2016-04-04 17:38 | NUR ---
Headlight Adjuster/Counselor: S: I'm really relaxed." O: Patient slept 7 hours last night as per staff. He denies S/I and H/I. He denies auditory and visual hallucinations. Depression is 1/10 and anxiety is 1/10. Out-patient appointments: Dr. Charlene Serrano, PCP [facility], 04/05/16 at 9:30am and India Joseph counselor at [facility], 04/08/16 at 10:00am. Patient went home via Medicaid transportation. A: Patient is cooperative, pleasant, hopeful, good insight, good judgment. P: Follow care plan, coordinate out-patient providers.
[2016-07-16] MEDS ORDERED: DILT180C83 PO (14:01)
[2016-07-16] MEDS ORDERED: DIAZ5ORA PO (14:01)
[2016-07-16] MEDS ORDERED: GABA-502 PO (14:01)
[2016-07-16] MEDS ORDERED: BUSP15TA3 PO (14:01)
[2016-07-16] MEDS ORDERED: ZOF8 PO (14:01)
[2016-07-16] MEDS ORDERED: HYDR-4003 PO (14:01)
[2016-07-16] MEDS ORDERED: KLO2T PO (14:01)
[2016-07-16] MEDS ORDERED: RISP2TAB21 PO (14:01)
[2016-07-16] MEDS ORDERED: CYCL10TA9 PO (14:01)
[2016-07-16] MEDS ORDERED: [UNRECOGNIZED DRUG - CODE] MC (14:01)
[2016-07-16] MEDS ORDERED: HYDR25TA4 PO (14:01)
[2016-07-16] MEDS ORDERED: EPIN0.3P2 IJ (14:01)
== END 2016-04-04 13:45 | disposition home or self-care (01) | DRG 750 ==
LOC: UNDOADMIN 21:06 → MHC 21:06
PROVIDERS: ADMIT Psychiatry & Neurology Psychiatry; ATTEND Psychiatry & Neurology Psychiatry
DX: F25.0 Schizoaffective disorder, bipolar type (principal); R45.851 Suicidal ideations; I10 Essential (primary) hypertension; F41.9 Anxiety disorder, unspecified; G47.00 Insomnia, unspecified; Z87.820 Personal history of traumatic brain injury

== ENCOUNTER 2016-07-18 05:32 | Day surgery (SDC) | payer OTHER ==
[~2016-07-18] VITALS: Ht 188 cm; Wt 112.8 kg
[2016-07-18] VITALS (8 sets, daily range): BP systolic 138–150; BP diastolic 79–89; PULSE 79–96; RESP 11–16; O2SAT 90–95
[~2016-07-18 05:32] MED LIST changes: -BENZ2TAB7; -BUSP15TA3; +BUSP15TA3 PO; +CYCL10TA9 PO; +DIAZ5ORA PO; -DIAZ5TAB3; -DILT180C83; +DILT180C83 PO; -EPIN0.3P17; +EPIN0.3P2 IJ; -GABA-502; +GABA-502 PO; +HYDR-4003 PO; -HYDR25TA4; +HYDR25TA4 PO; -KLO2T; +KLO2T PO; -OXYC-466; -PRAZ5CAP3; +RISP2TAB21 PO; -RISP2TAB3; +ZOF8 PO; +[UNRECOGNIZED DRUG - CODE] MC
[2016-07-18] MEDS ORDERED: Ondansetron 2 mg/mL 2 mL Inj ONE (05:33)
[2016-07-18] MEDS ORDERED: fentaNYL-PF 50 mCg/mL 2 mL Inj ONE (05:33)
[2016-07-18] MEDS ORDERED: Dexamethasone 4 mg/mL Inj ONE (05:33)
[2016-07-18] MEDS: Lactated Ringer's 1,000 ML IV SCH ×2 (05:54→07:35)
--- NOTE | 2016-07-18 07:08 | PCM.HPANE ---
Patient Data Date of Service: Jul 18, 2016 (0707) Surgeon Admitting Provider: Attending Provider:Matt Bosch DO Primary Care Physician:Charlene Serrano MD Other Provider:Jessenia Neri Anesthesia Reason for Visit Bilateral Nerve Lesions Ht/WT & BMI Height (Feet): 6 Height (Inches): 2 Weight (Kilograms): 112.8 Body Mass Index 31.00 Allergies Coded Allergies: Honey Bee (Verified Allergy, Severe, Anaphylaxis, 07/16/16) Penicillins (Verified Allergy, Severe, HIVES, 07/16/16) Wasp (Verified Allergy, Severe, Anaphylaxis, 07/16/16) morphine (Verified Allergy, Severe, HIVES,ITCHING, 07/16/16) hydromorphone (Verified Allergy, Unknown, UNKNOWN, 07/16/16) ketorolac (Verified Allergy, Unknown, UNKNOWN, 07/16/16) Past Anesthesia History Anesthesia History: Denies:: Anesthesia Reactions, Malignant Hyperthermia Diabetes History Hx Diabetes?: No MRSA MRSA: No Medications Hypertension Medication: Yes (DILTIAZEM,HCTZ) Home Meds Incl Beta Los: No Reported Medications Clonazepam 2 Mg Tablet2 Mg PO HS Ref 0 07/16/16 Risperidone (Risperdal)2 Mg Tablet5 Mg PO HS #30 TABLET Ref 0 07/16/16 Hydrochlorothiazide 25 Mg Zjtvet72 Mg PO DAILY 30 Days Ref 0 07/16/16 Gabapentin 300 Mg Ybmevpd897 Mg PO QID Ref 0 07/16/16 Epinephrine (Epipen 2-Rebel)0.3 Mg/0.3 Ml Auto.injct0.3 Mg IJ PRN 07/16/16 Diltiazem ER 180 Mg Cap.er.68q901 Mg PO DAILY Ref 0 07/16/16 Diazepam Concentrate Solution 5 Mg/1 Ml Oral.conc5 Mg PO QID Ref 0 07/16/16 Ciclopirox Olamine 5 Gm Powder5 Gm MC DIRECTED PRN NAIL HEALTH 07/16/16 Buspirone 15 Mg Hijstp34 Mg PO BID Ref 0 07/16/16 Discontinued Reported Medications Ondansetron (Zofran)8 Mg Tablet8 Mg PO Q8H PRN For Nausea 07/16/16 Hydrocodone-Acetaminophen 5-325 mg 1 Each Tablet1 Tablet PO Q4H PRN For Pain Ref 0 07/16/16 Cyclobenzaprine 10 Mg Wqwiur30 Mg PO BID PRN Spasm Ref 0 07/16/16 Epinephrine 0.3 Mg/0.3 Ml Auto.injct PRN For Anaphyllaxis #2 08/20/15 oxyCODONE-Acetaminophen 10-325 mg 1 Each Tablet Tid #41 08/20/15 Discontinued Scripts Zolpidem (Ambien)5 Mg Tablet5-10 Mg PO HS PRN Insomnia #10 TAB Prov:Brent Lafleur MD 04/04/16 Mirtazapine 15 Mg Csqtii78 Mg PO 22 14 Days Prov:Brent Lafleur MD 04/04/16 Hydroxyzine Pamoate (HydrOXYzine Pamoate)25 Mg Vqquvzt50 Mg PO Q4H PRN anxiety/ agitation/insomnia #14 CAPSULE Prov:Brent Lafleur MD 04/04/16 Clonazepam 1 Mg Tablet1 Mg PO TIDWM 14 Days Prov:Brent Lafleur MD 04/04/16 Buspirone 15 Mg Carfgb43 Mg PO BID 14 Days Prov:Brent Lafleur MD 04/04/16 Prazosin (Minipress)2 Mg Capsule2 Mg PO DAILY 14 Days Prov:Brent Lafleur MD 04/04/16 Gabapentin 300 Mg Capsule1 Capsule PO QID 14 Days Prov:Brent Lafleur MD 04/04/16 Risperidone 2 Mg Tablet2 Tablet PO HS 14 Days Prov:Brent Lafleur MD 04/04/16 Diltiazem ER 180 Mg Cap.er.24h1 Capsule PO DAILY 14 Days Prov:Brent Lafleur MD 04/04/16 Clonazepam 2 Mg Tablet1 Tablet PO HS 14 Days Prov:Brent Lafleru MD 04/04/16 Prazosin 5 Mg Capsule1 Capsule PO DAILY 14 Days Prov:Brent Lafleur MD 04/04/16 Hydrochlorothiazide 25 Mg Tablet1 Tablet PO DAILY 14 Days Prov:Brent Lafleur MD 04/04/16 History History of ENT Problems?: No HEENT History: Denies:: Abnormal Airway Denture Type: Full- Upper Full- Lower Teeth Condition: Missing Teeth Hx of Heart Problems?: Yes Cardiovascular History: Positive for:: Hypertension Denies:: Congestive Heart Failure Heart Murmur (ECHO 01/2009 EF 55-60%) Irregular Heartbeat (PT C/OF PA;PITATIONS/SYNCOPE) Valvular Heart Disease Hx of Respiratory Problem?: No Respiratory History: Positive for:: Use of C-PAP Machine (ISABEL+ W/ CPAP SLEEP STUDY 04/2009, 10/2011) Denies:: Tuberculosis Hx Neurologic Problems?: Yes Neurological History: Positive for:: Headaches Denies:: Alzheimer's Disease Dementia Other Neurological Pertinent: HX OF BRAIN INJURY, PLMD, RLS Hx of GI Problems?: No Hx of Problems?: Yes Genitourinary History: Positive for:: Kidney Stones (HX STONES S/P EXTRACTION 2009, PASSED ON OWN 2014) Other Pertinent History: HX RENAL CYSTIC DISEASE Male Hx: Denies:: Prostate Problems Scrotal Mass Testicular Surgery Skin History: Denies:: History Skin Disorders? Pressure Ulcers Hx Musculoskeletal Problems?: Yes Musculoskeletal History: Positive for:: Back Injury (C/OF CHRONIC BACK PAIN) Joint Replacement Musculoskeletal Trauma (S/P B/L KNEE RPR'S X2 (FX)) Hx of Psycho/Social Problems?: Yes Psycho Social History: Positive for:: Anxiety (PTSD) Bipolar Disorder Hx Depression Suicide Attempt (long ago/SUICIDAL IDEATION 11/2010) Hx Surgeries?: Yes (B/L KNEE RPR'S X2,KIDNEY STONE) Hx Any Other Health Problems?: Yes Other History: Positive for:: Hospitalization Denies:: Cancer Endocrine Disease Thyroid Disease History Blood Transfusions: Denies:: Blood Transfuse Reaction Blood Transfusions Hx Diabetes: No Hx Alcohol Use: Yes (OCC)Hx Substance Use: Yes Smoking Status: Current Every Day Smoker Have You Smoked inLast 12 mo: Yes Stop/Bang Treated for Sleep Apnea?: No Do You Have a CPAP Machine?: No S-Snoring: Do You Snore Loudly: Yes T-Tired: feel tired, fatigued: Yes O-Obsered: Observed not breath: No P-Blood Pressure: treated: Yes B- Body Mass Index > 35 kg/m2: No A- Age over 50: No N- Neck Large Circumference: Yes G- Gender Male: Yes ISABEL Total Score: 5 ISABEL Risk Assessment: High Risk, =/>3 Yes Risk Assessment Category Category 1A: Patient has history of documented sleep apnea, and HAS NOT received any narcotic, sedative or anesthesia administration during this stay. Category 1B: Patient has history of documented sleep apnea, and HAS received any narcotic , sedative or anesthesia administration during this stay Category 2: Patient has SUSPECTED Obstructive Sleep Apnea, and HAS received any narcotic , sedative or anesthesia administration during this stay. Category 3: Patient has SUSPECTED Obstructive Sleep Apnea and HAS NOT received narcotic, sedative or anesthesia administration during this stay. Category 4: Outpatient in Procedural Areas with known sleep apnea or who screen positive for High Risk via the STOP/BANG questionnaire. Exam Exam Vital Signs Vital Signs Date Time Temp Pulse Resp B/P Pulse Ox O2 Delivery O2 Flow Rate FiO2 07/18/16 06:05 CPAP/BIPAP 07/18/16 06:05 36.4 84 16 138/86 93 Room Air General Appearance: Alert, Oriented X3 HEENT/AIRWAY: MP 1 Lungs: Clear to Auscultation Heart: Exam Unremarkable Meds/Labs/Diagnostics Admission Meds Current Medications Lactated Ringer's (Lr) 1,000 ml @ 120 mls/hr Q8H20M IV Last administered on t 05:54; Start 07/18/16 at 05:00; Stop 07/18/16 at 13:19 Plan Impression Patient chart reviewed, patient interviewed and anesthestic plan with risks, benefits, and alternatives discussed, and informed consent obtained. NPO per Anesth. Guidelines: Yes ASA Physical Status: ASA2 Mod Systemic Disease Anesthetic Plan: GA Bene/Risks/Altern/Consents: Yes HP Complete Prior to Induction: Yes Angel Sanon MD Jul 18, 2016 07:08
[2016-07-18] MEDS ORDERED: Lactated Ringer's 1,000 ML IV SCH (07:09)
[2016-07-18] MEDS ORDERED: Lactated Ringer's 500 ML IV PRN (07:09)
[2016-07-18] MEDS ORDERED: Phenylephrine 10,000 mCg/mL Inj IVPUSH PRN (07:10)
[2016-07-18] MEDS ORDERED: EPHEDrine Sulfate 50 mg/mL Inj IVPUSH PRN (07:10)
[2016-07-18] MEDS ORDERED: MetoCLOpramide 5 mg/mL 2 mL Inj IVPUSH PRN (07:10)
[2016-07-18] MEDS ORDERED: Ondansetron 2 mg/mL 2 mL Inj IVPUSH PRN (07:10)
[2016-07-18] MEDS ORDERED: fentaNYL-PF 50 mCg/mL 2 mL Inj IVPUSH PRN (07:10)
[2016-07-18] MEDS ORDERED: HYDROmorphone 1 mg/mL Inj IVPUSH PRN (07:10)
[2016-07-18] MEDS ORDERED: Dexamethasone 4 mg/mL Inj IVPUSH PRN (07:10)
[2016-07-18] MEDS ORDERED: Lidocaine 1%-Epi 1:100,000 20 mL Inj NERVEBLOCK ONE (07:54)
[2016-07-18] MEDS ORDERED: HYDROcodone-APAP 7.5-325 mg Tablet PO PRN (08:05)
--- NOTE | 2016-07-18 08:26 | PCM.ANEP1 ---
Post Anesthesia PACU Phase 1 Assessment Vital Signs 138/80, 95%, 90, 16, 36.5 Vital Signs Date Time Temp Pulse Resp B/P Pulse Ox O2 Delivery O2 Flow Rate FiO2 07/18/16 06:05 CPAP/BIPAP 07/18/16 06:05 36.4 84 16 138/86 93 Room Air Anesthetic Administered: GA Level of Alertness: Awake, talking BOB's with Equal Strength: Yes Pain: No Nausea or Vomiting: No CV Function & Hydration Stable: Yes Airway Device: none Oxygen Delivery: Room Air Lungs: Clear to Auscultation Dermatome Level: Full Sensation Summary uneventful GA PACU Phase 2 Assessment Complications: No Follow up Care: No Patient Instructions Provided: N/A Angel Sanon MD Jul 18, 2016 08:26
--- NOTE | 2016-07-18 09:32 | OP ---
[address] [address] OPERATIVE REPORT PATIENT: REBEKAH DALTON : 1975 MR#: [id number] ADMIT: 07/18/2016 JOB ID: [id number] DATE OF SURGERY: 07/18/2016 PREOPERATIVE DIAGNOSIS(ES): Left cubital tunnel syndrome. POSTOPERATIVE DIAGNOSIS(ES): Left cubital tunnel syndrome. PROCEDURE: Left cubital tunnel decompression. SURGEON: Matt Bosch DO [employer] PROFESSOR: Mayte Peña PA-C ANESTHESIA: General. HISTORY: The patient is a pleasant, 41-year-old male with a long-standing history of bilateral numbness and tingling to the ring and the small fingers. He presented with already significant findings for cubital tunnel syndrome bilaterally on EMG and nerve conduction studies. I discussed with the patient, the risks, benefits, and indications to proceed with a left cubital tunnel decompression versus ulnar nerve transposition pending disability of the ulnar nerve intraoperatively. He understood the risks include, but not limited to, neurovascular injury, tendon injury, infection, failure to resolve the patient's preoperative symptoms of stiffness, and persistent pain all which may require further intervention. Patient had all questions answered. Consent was signed and placed in chart. PROCEDURE IN DETAIL: The patient was brought to the operative suite and placed supine on the operating table. Surgical time-out was performed. Everyone in the room was in agreement. After appropriate anesthesia was obtained, the left upper arm tourniquet was applied, and the left upper extremity was prepped and draped in a sterile fashion. Left upper extremity then exsanguinated and the tourniquet inflated to 250 mmHg. A standard 5 cm incision was made overlying the course of the ulnar nerve just overlying the level of the cubital tunnel and posterior to the medial epicondyle. Dissection was carried down to the cubital tunnel. Care was taken to protect any branches of the medial antebrachial cutaneous nerves that were identified. The ulnar nerve was identified within the cubital tunnel and decompressive far proximal to the level of the medial intermuscular septum and thus far distal to include the deep fascia flexor carpi ulnaris. Following complete decompression, the patient's elbow was brought through a full functional range of motion and no subluxation was appreciated for the ulnar nerve. Copious irrigation was performed followed by closure of the subcutaneous tissues with 4-0 Vicryl and 4-0 nylon for the skin. The patient was then placed in a bulky sterile dressing. ESTIMATED BLOOD LOSS: Less than 1 cc. COMPLICATIONS: None. DISPOSITION: The patient tolerated the procedure well. Anesthesia was reversed. The patient was transferred back to the recovery room. POSTOPERATIVE PLAN: The patient will follow up in the office in two weeks. We will remove the patient's sutures at that time. Have him start working on range of motion and scar mobilization.
== END 2016-07-18 23:59 | disposition home or self-care (01) ==
LOC: SAS 05:32
PROVIDERS: ATTEND Orthopaedic Surgery
DX: G56.23 Lesion of ulnar nerve, bilateral upper limbs (principal); G56.22 Lesion of ulnar nerve, left upper limb; G47.33 Obstructive sleep apnea (adult) (pediatric); N28.1 Cyst of kidney, acquired; I10 Essential (primary) hypertension; R00.2 Palpitations; F17.210 Nicotine dependence, cigarettes, uncomplicated
CPT/HCPCS: 64718; J1100; J1170; J2250; J2405; J3010; J7120

== ENCOUNTER → 2016-10-10 | Day surgery (SDC) | payer OTHER ==
[~2016-10-10] VITALS: Ht 185.4 cm; Wt 114.0 kg
[2016-10-10] VITALS (10 sets, daily range): BP systolic 140–149; BP diastolic 83–94; PULSE 78–94; RESP 15–17; O2SAT 92–98
[~2016-10-10] MED LIST changes: +Atropine 0.4 mg/mL Inj IVPUSH PRN; -CYCL10TA9 PO; +Dexamethasone 4 mg/mL Inj ONE; +EPHEDrine Sulfate 50 mg/mL Inj IVPUSH PRN; -HYDR-4003 PO; +HYDROcodone-APAP 7.5-325 mg Tablet PO PRN; +Labetalol 5 mg/mL 20 mL Inj IV PRN; +Lactated Ringer's 1,000 ML IV ONE; +Lactated Ringer's 1,000 ML IV SCH; +Lactated Ringer's 500 ML IV PRN; +Lidocaine 1%-Epi 1:100,000 20 mL Inj INFILTRATE ONE; +Ondansetron 2 mg/mL 2 mL Inj IVPUSH PRN; +Ondansetron 2 mg/mL 2 mL Inj ONE; +Phenylephrine 10,000 mCg/mL Inj IVPUSH PRN; +Propofol 10 mg/mL 20 mL Inj ONE; -ZOF8 PO; +fentaNYL-PF 50 mCg/mL 2 mL Inj ONE
--- NOTE | 2016-10-10 10:46 | PCM.HPANE ---
Patient Data Surgeon Admitting Provider: Attending Provider:Matt Bosch DO Primary Care Physician:Charlene Serrano MD Other Provider:[place] Anesthesia Reason for Visit Right Cubital Tunnel Syndrome Ht/WT & BMI Height (Feet): 6 Height (Inches): 1.00 Weight (Kilograms): 114 Body Mass Index 33.00 Allergies Coded Allergies: Honey Bee (Verified Allergy, Severe, Anaphylaxis, 10/04/16) Penicillins (Verified Allergy, Severe, HIVES, 10/04/16) Wasp (Verified Allergy, Severe, Anaphylaxis, 10/04/16) morphine (Verified Allergy, Severe, HIVES,ITCHING, 10/04/16) hydromorphone (Verified Allergy, Unknown, UNKNOWN, 07/16/16) ketorolac (Verified Allergy, Unknown, UNKNOWN, 07/16/16) Past Anesthesia History Anesthesia History: Denies:: Abnormal Airway, Anesthesia Reactions, Malignant Hyperthermia Diabetes History Hx Diabetes?: No MRSA MRSA: No Medications Home Meds Incl Beta Los: No Reported Medications Clonazepam 2 Mg Tablet2 Mg PO HS Ref 0 07/16/16 Risperidone (Risperdal)2 Mg Tablet5 Mg PO HS #30 TABLET Ref 0 07/16/16 Hydrochlorothiazide 25 Mg Wezopf60 Mg PO DAILY 30 Days Ref 0 07/16/16 Gabapentin 300 Mg Ldhnhha714 Mg PO QID Ref 0 07/16/16 Epinephrine (Epipen 2-Rebel)0.3 Mg/0.3 Ml Auto.injct0.3 Mg IJ PRN 07/16/16 Diltiazem ER 180 Mg Cap.er.57j187 Mg PO DAILY Ref 0 07/16/16 Diazepam Concentrate Solution 5 Mg/1 Ml Oral.conc5 Mg PO QID Ref 0 07/16/16 Ciclopirox Olamine 5 Gm Powder5 Gm MC DIRECTED PRN NAIL HEALTH 07/16/16 Buspirone 15 Mg Sdgciq15 Mg PO BID Ref 0 07/16/16 History History of ENT Problems?: No HEENT History: Denies:: Abnormal Airway Cataracts Difficult Intubation Dysphagia Glaucoma Hearing Problem Sinus Problem TMJ Denture Type: Full- Upper Partial- Lower Teeth Condition: Missing Teeth Hx of Heart Problems?: Yes Cardiovascular History: Positive for:: Hypertension Denies:: AICD Abdominal Aortic Aneurism Atrial Fibrillation Cardiac Surgery Chest Pain Congestive Heart Failure Coronary Artery Disease Edema Heart Murmur Irregular Heartbeat (palpitations) Pacemaker Peripheral Vascular Rheumatic Fever Thrombophlebitis Valvular Heart Disease (echo 2009 ef 55%) Hx of Respiratory Problem?: Yes Respiratory History: Positive for:: Use of C-PAP Machine Denies:: Asthma COPD Emphysema Pneumonia Tuberculosis Hx Neurologic Problems?: Yes Neurological History: Positive for:: Headaches Denies:: Alzheimer's Disease Dementia Hx of GI Problems?: No Hx of Problems?: Yes Genitourinary History: Positive for:: Kidney Stones (HX STONES S/P EXTRACTION 2009, PASSED ON OWN 2014) HX of Peritoneal Dialysis: No Male Hx: Denies:: Prostate Problems Scrotal Mass Testicular Surgery Skin History: Denies:: History Skin Disorders? Pressure Ulcers Hx Musculoskeletal Problems?: Yes Musculoskeletal History: Positive for:: Back Injury (chronic back pain) Joint Replacement Musculoskeletal Trauma (rright cubital tunnel-current admission- hx of left release 07/2016) Hx of Psycho/Social Problems?: Yes Psycho Social History: Positive for:: Anxiety (PTSD) Bipolar Disorder Hx Depression Suicide Attempt (long ago/SUICIDAL IDEATION 11/2010) Hx Surgeries?: Yes (B/L KNEE RPR'S X2,KIDNEY STONE) Hx Any Other Health Problems?: Yes Other History: Positive for:: Hospitalization Denies:: Cancer Endocrine Disease Thyroid Disease History Blood Transfusions: Denies:: Blood Transfuse Reaction Blood Transfusions Hx Diabetes: No Hx Alcohol Use: Yes (OCC)Hx Substance Use: Yes Smoking Status: Current Every Day Smoker Have You Smoked inLast 12 mo: Yes Stop/Bang S-Snoring: Do You Snore Loudly: Yes T-Tired: feel tired, fatigued: No O-Obsered: Observed not breath: Yes P-Blood Pressure: treated: Yes B- Body Mass Index > 35 kg/m2: No A- Age over 50: No N- Neck Large Circumference: No G- Gender Male: Yes ISABEL Total Score: 4 Risk Assessment Category Category 1A: Patient has history of documented sleep apnea, and HAS NOT received any narcotic, sedative or anesthesia administration during this stay. Category 1B: Patient has history of documented sleep apnea, and HAS received any narcotic , sedative or anesthesia administration during this stay Category 2: Patient has SUSPECTED Obstructive Sleep Apnea, and HAS received any narcotic , sedative or anesthesia administration during this stay. Category 3: Patient has SUSPECTED Obstructive Sleep Apnea and HAS NOT received narcotic, sedative or anesthesia administration during this stay. Category 4: Outpatient in Procedural Areas with known sleep apnea or who screen positive for High Risk via the STOP/BANG questionnaire. Exam Exam Vital Signs Vital Signs Date Time Temp Pulse Resp B/P Pulse Ox O2 Delivery O2 Flow Rate FiO2 10/10/16 08:52 36.2 94 16 140/90 94 Room Air General Appearance: Alert, Oriented X3, Cooperative, No Acute Distress HEENT/AIRWAY: MP 2, Neck Movement (FROM), Mouth Opening (3 FBMO) Lungs: Clear to Auscultation, Normal Air Movement Heart: Exam Unremarkable, Regular Rate/Rhythm, No Murmurs/Rubs/Gallops Meds/Labs/Diagnostics Admission Meds Current Medications Lactated Ringer's (Lr) 1,000 ml @ ud STK-MED ONCE IV Last administered on 10/10t 08:56; Start 10/10/16 at 08:56; Stop 10/10/16 at 08:57; Status DC Plan Impression Patient chart reviewed, patient interviewed and anesthestic plan with risks, benefits, and alternatives discussed, and informed consent obtained. NPO per Anesth. Guidelines: Yes ASA Physical Status: ASA2 Mod Systemic Disease Anesthetic Plan: GA Bene/Risks/Altern/Consents: Yes HP Complete Prior to Induction: Yes Jose Maria Garces MD Oct 10, 2016 10:07
[2016-10-10] MEDS: fentaNYL-PF 50 mCg/mL 2 mL Inj IVPUSH PRN ×2 (11:30→11:35)
--- NOTE | 2016-10-10 11:34 | OP ---
[address] [address] OPERATIVE REPORT PATIENT: REBEKAH DALTON : 1975 MR#: [id number] ADMIT: 10/10/2016 JOB ID: [id number] DATE OF SURGERY: 10/10/2016 PREOPERATIVE DIAGNOSIS(ES): Right cubital tunnel syndrome. POSTOPERATIVE DIAGNOSIS(ES): Right cubital tunnel syndrome. PROCEDURE: Right cubital tunnel decompression. SURGEON: Matt Bosch D.O. ANESTHESIA: General. HISTORY: The patient is a pleasant 41-year-old male that presented to me with severe bilateral cubital tunnel syndrome. He underwent surgery for his left side for cubital tunnel decompression and did very well, but continued to have symptoms in regards to his right. Discussed with the patient the risks, benefits, and indications to proceed with the same surgery but this time on his right for a right cubital tunnel decompression versus ulnar nerve transposition pending the stability of the ulnar nerve intraoperatively. He understood the risks include, but not limited to, neurovascular injury, tendon injury, infection, failure to resolve the patient's preoperative symptoms, stiffness, persistent pain which may require further intervention. The patient had all questions answered. Consent was signed and placed in the chart. PROCEDURE IN DETAIL: The patient was brought to the operative suite and placed supine on the operating table. Surgical time-out was performed. Everyone in the room was in agreement. After appropriate anesthesia was obtained, a right upper arm tourniquet was applied. The right upper extremity prepped and draped in a sterile fashion. Right upper extremity was then exsanguinated and tourniquet inflated to 250 mmHg. A 5 cm incision was made overlying the course of the ulnar nerve within the cubital tunnel just posterior to the medial epicondyle. This was centered also at the medial epicondyle. Dissection was carried down to the cubital tunnel. Care was taken to protect any branches of the medial antebrachial cutaneous nerves. The ulnar nerve was identified within the cubital tunnel and decompressed as far proximal to the level of the medial intermuscular septum and as far distal to include the deep fascia of the flexor carpi ulnaris. Following complete decompression, the patient's right elbow was brought through full and functional range of motion without any instability of the ulnar nerve appreciated. Copious irrigation was then performed followed by closure of the subcutaneous tissues with 4-0 Vicryl and a running 3-0 nylon for the skin. The patient was then placed in a bulky soft dressing. ESTIMATED BLOOD LOSS: Roughly 1 cc. COMPLICATIONS: None. DISPOSITION: The patient tolerated the procedure well. Anesthesia was reversed. The patient was transferred to the PACU for recovery. POSTOPERATIVE PLAN: The patient will follow up in the office in two weeks for suture removal and start working on range of motion and scar mobilization.
--- NOTE | 2016-10-10 18:22 | PCM.ANEP1 ---
Post Anesthesia PACU Phase 1 Assessment Vital Signs Vital Signs Date Time Temp Pulse Resp B/P Pulse Ox O2 Delivery O2 Flow Rate FiO2 10/10/16 13:30 94 Room Air 10/10/16 12:36 36.1 79 16 140/93 97 Room Air 10/10/16 12:15 78 16 149/94 95 Nasal Cannula 2 10/10/16 12:00 80 15 142/83 94 Nasal Cannula 2 10/10/16 11:45 83 17 149/86 93 Room Air 10/10/16 11:30 84 15 147/90 92 Room Air 10/10/16 11:25 85 17 145/84 94 Room Air 10/10/16 11:20 89 16 147/87 98 Simple Mask 8 10/10/16 11:15 36.8 94 17 141/88 97 Simple Mask 8 Anesthetic Administered: GA Level of Alertness: Drowsy, not talking BOB's with Equal Strength: Yes Pain: No Nausea or Vomiting: No CV Function & Hydration Stable: Yes Airway Device: na Oxygen Delivery: Room Air Lungs: Clear to Auscultation, Normal Air Movement Dermatome Level: Full Sensation PACU Phase 2 Assessment Complications: No Follow up Care: N/A Patient Instructions Provided: N/A Jose Maria Garces MD Oct 10, 2016 18:22
== END | disposition home or self-care (01) ==
LOC: SAS 08:00
PROVIDERS: ATTEND Orthopaedic Surgery
DX: G56.21 Lesion of ulnar nerve, right upper limb (principal); I10 Essential (primary) hypertension; G47.33 Obstructive sleep apnea (adult) (pediatric); G25.81 Restless legs syndrome; G47.00 Insomnia, unspecified; R00.2 Palpitations; G47.61 Periodic limb movement disorder
CPT/HCPCS: 64718; J1100; J2405; J2704; J3010; J7120